=== PATIENT | female | born 1945 | race Caucasian/White ===

== ENCOUNTER → 2016-11-27 | Outpatient (CLI) | payer MEDICARE, OTHER ==
[~2016-11-27] MED LIST: ACET325T9 PO; IBUP-1027 PO; IOHEXOL 180 MG/ML 10 ML VIAL. ONE; VENTOLIN HFA18 GM INH; methylPREDNISolone ACETATE 40 MG/ML VIAL. ONE; methylPREDNISolone ACETATE 80 MG/ML VIAL. ONE
--- NOTE | 2016-11-27 23:15 | PAIN ---
DATE OF SERVICE: 11/27/2016 DIAGNOSES: Cervical radiculopathy with cervical degenerative disk disease. HISTORY OF PRESENT ILLNESS: The patient is a 71-year-old female who returns for followup status post cervical epidural steroid injection x 1. The patient's first injection was on 07/04/2014. The patient did very well with this and had elected to follow up ____. The patient reports that over the past 3-4 weeks the pain has been getting to return in the base of the neck and left upper extremity and across the shoulders bilaterally. The patient reports it is aching and dull with sharp pain. No significant loss of motor function. She has been increasing her activities at home and has been watching her great grandchild who is only 4 months old and lifting him quite a bit that causes some more pressure and stress on the neck and the shoulders as well as the upper extremities. The patient reports the pain as 6-7 on a scale of 10, is worse, no loss of motor function, but some minor fatigability in the left upper extremity compared to the right with repetitive motions, getting dressed in the morning, raising her arm up over her head on the left side is becoming more and more painful with some tingling into the left hand as well. The patient reports no loss of motor function or other complaints. PHYSICAL EXAMINATION: VITAL SIGNS: The patient's blood pressure is 175/84, pulse 90, respirations 18, temperature 98.0 degrees Fahrenheit, height 5 feet 2 inches, weight is 184 pounds. GENERAL: The patient is awake, alert, oriented, appropriate, very pleasant demeanor. HEENT: Shows normocephalic, atraumatic. Extraocular movements are intact and symmetrical. Oral cavity shows mucous membranes are moist and pink. Dentition is intact. NECK: Shows anterior throat supple without palpable lymphadenopathy noted. Swallow reflex is symmetrical. CHEST: Shows normal on inspection. Breath sounds clear to auscultation bilaterally. HEART: Shows S1 and S2 clear. No murmurs auscultated. ABDOMEN: Obese, soft, nontender, nondistended. No palpable organomegaly is noted. No rebound or guarding demonstrated. BACK: Shows spine grossly in midline. Cervical paraspinous musculature shows normal-appearing cervical lordotic curvature, on palpation shows moderate tenderness with palpation in the inferior aspect of the cervical paraspinous musculature bilaterally as well as the superior medial trapezius and the lateral trapezius on the left, but appears roughly symmetrical compared to the right without evidence of atrophy, hypertrophy, no trigger points, no radiation of pain. EXTREMITIES: Upper extremity showed deep tendon reflexes at 2+ in the biceps and triceps tendons, are equal. Motor is approximately 4 on a scale of 5 with left-sided oversize load pilot escort strength and 5/5 on the right, but is intact. Biceps and triceps flexion is 5/5 and equal bilaterally. Peripheral pulses are 2+ in radial distribution. No peripheral edema is noted. No clubbing, no cyanosis. Upper extremities are warm and dry to touch, equal in color and appearance. Shoulder shrug is strong and intact without loss of strength on resistance as is 90-degree abduction of the shoulders without loss of strength on resistance as well with pain reported in the base of the neck and the left shoulder. Options were discussed with the patient. The patient's old chart was reviewed as her current medication regimen and updated. Current review of systems updated today as well and we will proceed with a second cervical epidural steroid injection with fluoroscopic guidance. Risks were again discussed including, but not limited to bleeding, infection, possibility of epidural hematoma and subsequent neurological compromise, dural puncture, headaches, spinal cord and/or nerve damage, side effects of steroid medication and poor results regarding pain control. The patient understands and wishes to proceed. The patient will return to clinic in approximately 2 weeks for followup. She was counseled on return appointment, activity level and side effects to be aware of. DIAGNOSIS: Cervical radiculopathy with cervical degenerative disk disease. PROCEDURE: Cervical epidural steroid injection, translaminar approach at C6-C7 level using C-arm fluoroscopic guidance, local anesthetic and under sterile prep and drape with medications injected 120 mg of Depo-Medrol plus 5 mL of preservative-free normal saline and 2 mL of Isovue for contrast. Condition at discharge is stable. The patient tolerated the procedure well, had no complications. DARON MINA MD DR: AFIA/darren JOB#: [id number] / [id number]
== END ==
LOC: PNCL 10:13
PROVIDERS: ATTEND Anesthesiology
DX: M50.123 Cervical disc disorder at C6-C7 level with radiculopathy (principal)
CPT/HCPCS: 62321; J1030; J1040